=== PATIENT | male | born 1970 | race Caucasian/White ===

== ENCOUNTER 2019-10-10 08:00 | Outpatient (RCR) | payer BC, SELFPAY ==
--- NOTE | 2019-09-09 12:02 | HP.PTEVAL ---
Patient's Visit Information TETO AVALOS is a 49 year old M referred to Physical Therapy by Dr. Ernie Carr MD with a diagnosis of LUMBAGO WITH SCIATICA LEFT SIDE. Date of Evaluation: 09/09/19 Physical Therapist: Diaz Patel, PT, Cert MDT, OCS - Visit Plan Frequency: 2x /Week Duration: 4 Weeks Plan: PT INTERVENTIONS YOANNA EX'S,PROGRESS TO DLS,POSTURAL EX'S,MODALTIES - Subjective This 49 y/o male presents to physical therapy with lumbar pain with radicular symptoms. Patient has had pain 1 1/2 ago noticed lateral hip pain got better. August 21 pain worse in right leg with inability to walk. Seen DR Recommended PT and wants MRI thinkls disc involvement .Located left LS lateral leg and tibia anterior with parathesia/tingling with weakness of ankle causing foot drop. Patient is not working to due pain.Aggrevating factors lifting,bending walking and standing occasional sitting. Coughing/sneezing -. Bowel/bladder -. Pateint symptoms affects sleeping. Pain meds -muscle relaxer/predisone. Alleviating factors Advil.Patient condition affects QOL and RTW. 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 SOCIAL: single - Pain Left Back Pain Intensity (Out of 10): 4 Pain Intensity Range: 10 Left Lower Extremity Pain Intensity (Out of 10): 1 Pain Intensity Range: 10 Comment: parathesia - Objective POSTURE: mild foward posture. GAIT: reciprocal pattern foot slap left side. NEURO: c/o parathesia/tingling left leg below knee,mytome weakness L4,reflexes L3-4,L4-5,L5-S1 1/3. MMT: RIGHT LEG 4/5,left quads/hams 4/5,hip flexion 4/5,ankle dorsiflexion 3+/5. FLEXABLITY: hams mild tight - Special Tests L/S Slump test left side: Positive L/S Slump test right side: Negative L/S Left Straight Leg Raise: Negative L/S Right Straight Leg Raise: Negative Lumbar Standing: Flexion - Mechanical Response: No effect Lumbar Standing: Flexion - Symptoms During Testing: No effect Lumbar Standing: Flexion - Symptoms After Testing: No effect Lumbar Standing: Extension - Mechanical Response: No effect Lumbar Standing: Extension - Symptoms During Testing: No effect Lumbar Standing: Extension - Symptoms After Testing: No worse Lumbar Standing: Right Side Glides - Mechanical Response: No effect Lumbar Standing: Right Side [place] - Symptoms During Testing: No effect Lumbar Standing: Right Side [place] - Symptoms After Testing: No effect Lumbar Standing: Left Side [place] - Mechanical Response: No effect Lumbar Standing: Left Side [place] - Symptoms During Testing: Increases Lumbar Standing: Left Side [place] - Symptoms After Testing: No worse Lumbar Lying: Flexion - Mechanical Response: No effect Lumbar Lying: Flexion - Symptoms During Testing: Decreases Lumbar Lying: Flexion - Symptoms After Testing: No better Lumbar Lying: Extension - Mechanical Response: No effect Lumbar Lying: Extension - Symptoms During Testing: Abolishes Lumbar Lying: Extension - Symptoms After Testing: No worse Comments:: back - Goals Goal 1:: Patient to be I with HEP(STG) Goal Time Frame: 2 Weeks Goal 2:: Patient to improve posture for ADLS/body mechanics Goal Time Frame: 4-6 Weeks Goal 3:: Patient to improve leg and back pain by 50% or > to improve function. Goal Time Frame: 4-6 Weeks Goal 4:: Patient to impove lumbar ROM for function of recovery Goal Time Frame: 4-6 Weeks Goal 5:: Patient increase anterior tibials by 4-/5 to improve gait. Goal Time Frame: 4-6 Weeks Goal 6:: Patient to improve back owestry score by 5 points or > to improve function /QOL Goal Time Frame: 4-6 Weeks - Rehabilitation Potential Physical Therapy Diagnosis: This patient has lumbar pain with radicular symptoms with symptoms in distal leg with parathesia and tingling along with mytome weakness ankle dorsiflexion affecting gait ,decrease lumbar ROM thus will benifit from skilled PT and may need further diagnostics. Rehabilitation Potential: Good - Anticipated Interventions Patient/Client Instruction: Educate patient on: Condition, Plan of Care For the Purpose of:: To decrease pain, To increase ROM, To improve muscle performance and motor function, To improve performance and independence with ADL's, To improve ability of physical actions for home/community/work/leisure, To improve health of tissue, To decrease soft tissue restriction, To increase flexibility/ROM, To reduce risk of recurrence, To improve ability to perform tasks related to life management Therapeutic Exercise to Include: Strength training, Postural training, Flexibilty training, Dynamic Lumbar Stabilization, Yoanna Exercises For the Purpose of:: To decrease pain, To increase ROM, To improve muscle performance and motor function, To improve ability to perform ADL's, To increase tolerance to activity/condition/position, To improve performance and independence with ADL's, To improve ability of physical actions for home/community/work/leisure, To improve health of tissue, To decrease soft tissue restriction, To increase flexibility/ROM, To improve ability to perform tasks related to life management TENS: Yes IF ES: Yes Cryotherapy (ice pack, ice massage): Yes Thermo therapy (hot pack): Yes Ultrasound (thermal/non thermal): Yes For the Purpose of:: To decrease pain, To decrease swelling/inflammation, To improve nutrient delivery to tissue, To increase oxygenation perfusion, To improve health of tissue, To decrease soft tissue restriction Thank you for the opportunity to evaluate your patient. For Medicare and Medicare HMO plans, please review the plan of care and approve it. It will need to be FAXED BACK to us at [phone] for Medicare purposes. For Medicare only, by signing this I certify the plan of care. Please let me know if there are questions or concerns regarding this plan of care. Physician Signature: Date:
--- NOTE | 2019-09-26 13:59 | HP.PTREVAL ---
Dr. Ernie Carr MD, It has been my pleasure to treat TETO AVALOS over the last 4 visits for LUMBAGO WITH SCIATICA LEFT SIDE. Please see the progress note below for an update on the physical therapy plan of care! Subjective: Better than it was. Still gets it in certain positions like squatting. Painfree at rest but L leg numbness persists. Doing exercise 1x/day at home. Objective/Function: L DF strength 35# vs 65# R in supine. Extremely stiff ext L/S and painful centrally. Slightly improved AROM after ext in stand, lying adn ext mobs, but no change to DF strength. Weakness apparent in L Df,Pt sitting with flat lordotic posture adn very poor ext with cental pain, slow flexion and stiff. Recommend patient contact doctor regarding MRI as weakness in L DF persists. Appropriate to cotninue therapy also despite slow progress. Plan Plan: 2x/weeek x 2 weeks to cotninue PT, Pt to contact doctor regarding getting MRI whcih would be apporpriate based on L DF weakness. Being off work still appropriate based on Df weakness adn slow pain improvement. PT to consist of ext ex adn core strength. Goals Goal 1:: Patient to be I with HEP(STG) Goal Time Frame: 2 Weeks Goal 2:: Patient to improve posture for ADLS/body mechanics Goal Time Frame: 4-6 Weeks Goal 3:: Patient to improve leg and back pain by 50% or > to improve function. Goal Time Frame: 4-6 Weeks Goal 4:: Patient to impove lumbar ROM for function of recovery Goal Time Frame: 4-6 Weeks Goal 5:: Patient increase anterior tibials by 4-/5 to improve gait. Goal Time Frame: 4-6 Weeks Goal 6:: Patient to improve back owestry score by 5 points or > to improve function /QOL Goal Time Frame: 4-6 Weeks Anticipated Interventions Patient/Client Instruction: Educate patient on: Condition, Plan of Care For the Purpose of:: To decrease pain, To increase ROM, To improve muscle performance and motor function, To improve performance and independence with ADL's, To improve ability of physical actions for home/community/work/leisure, To improve health of tissue, To decrease soft tissue restriction, To increase flexibility/ROM, To reduce risk of recurrence, To improve ability to perform tasks related to life management Therapeutic Exercise to Include: Strength training, Postural training, Flexibilty training, Dynamic Lumbar Stabilization, Miladys Exercises For the Purpose of:: To decrease pain, To increase ROM, To improve muscle performance and motor function, To improve ability to perform ADL's, To increase tolerance to activity/condition/position, To improve performance and independence with ADL's, To improve ability of physical actions for home/community/work/leisure, To improve health of tissue, To decrease soft tissue restriction, To increase flexibility/ROM, To improve ability to perform tasks related to life management TENS: Yes IF ES: Yes Cryotherapy (ice pack, ice massage): Yes Thermo therapy (hot pack): Yes Ultrasound (thermal/non thermal): Yes For the Purpose of:: To decrease pain, To decrease swelling/inflammation, To improve nutrient delivery to tissue, To increase oxygenation perfusion, To improve health of tissue, To decrease soft tissue restriction Please do not hesitate to contact me at [phone] by phone or if you have questions or concerns regarding this new plan of care! Sincerely, Noah Ho, DPT, OCS, CSCS
--- NOTE | 2020-02-18 13:22 | HP.PT.NRP ---
TETO AVALOS was seen in my office for initial evaluation on 09/09/19. The following Plan of Care was established for this patient: Initial Frequency: 2x /Week Initial Duration: 4 Weeks Patient/Client Instruction: Educate patient on: Condition, Plan of Care For the Purpose of:: To decrease pain, To increase ROM, To improve muscle performance and motor function, To improve performance and independence with ADL's, To improve ability of physical actions for home/community/work/leisure, To improve health of tissue, To decrease soft tissue restriction, To increase flexibility/ROM, To reduce risk of recurrence, To improve ability to perform tasks related to life management Therapeutic Exercise to Include: Strength training, Postural training, Flexibilty training, Dynamic Lumbar Stabilization, Richard Exercises For the Purpose of:: To decrease pain, To increase ROM, To improve muscle performance and motor function, To improve ability to perform ADL's, To increase tolerance to activity/condition/position, To improve performance and independence with ADL's, To improve ability of physical actions for home/community/work/leisure, To improve health of tissue, To decrease soft tissue restriction, To increase flexibility/ROM, To improve ability to perform tasks related to life management TENS: Yes IF ES: Yes Cryotherapy (ice pack, ice massage): Yes Thermo therapy (hot pack): Yes Ultrasound (thermal/non thermal): Yes For the Purpose of:: To decrease pain, To decrease swelling/inflammation, To improve nutrient delivery to tissue, To increase oxygenation perfusion, To improve health of tissue, To decrease soft tissue restriction This patient was last seen in our office . Pertinent comments regarding their Physical therapy will appear below: Patient seen for PT for back pain. PT interventions with richard ex's and DLS . Patient did have weakness ankle . Patient eas to f/u with back specialist At this point I will be discontinuing this patient from physical therapy. I would be happy to see this patient again in the future if found appropriate by the physician. Thank you! Diaz Patel, PT, Cert MDT, OCS
== END 2019-10-10 19:00 | disposition home or self-care (01) ==
LOC: PT 08:00
PROVIDERS: PCP Family Medicine; Referring Provider Family Medicine; Visit Provider Family Medicine
DX: M54.42 Lumbago with sciatica, left side (principal)
CPT/HCPCS: 97014; 97035; 97110; 97161; 97530; G0283

== ENCOUNTER → 2019-10-13 15:22 | Outpatient (CLI) | payer BC, SELFPAY ==
--- NOTE | 2019-10-13 15:25 | MRI_ITS ---
STUDY: MRI LUMBAR SPINE WITHOUT CONTRAST REASON FOR EXAM: Male, 49 years old. back and left leg pain/ numbness since 08/2019 TECHNIQUE: Standardized fat and water weighted pulse sequences were obtained in the sagittal and axial planes. COMPARISON: None FINDINGS: T12-L1: Normal endplates. Disc dehydration. Mild, noncompressive spondylotic bar. Normal bilateral facet joints. Normal central canal and bilateral lateral recesses. Normal bilateral intervertebral neural foramina. Normal lumbar lordosis. There is no substantial scoliosis. Normal conus medullaris that terminates at the L1-L2 level. L1-2: Normal endplates. Normal disc height, hydration and morphology. Normal bilateral facet joints. Normal central canal and bilateral lateral recesses. Normal bilateral intervertebral neural foramina. L2-3: Normal endplates. Normal disc height, hydration and morphology. Normal bilateral facet joints. Normal central canal and bilateral lateral recesses. Normal bilateral intervertebral neural foramina. L3-4: Normal endplates. Normal disc height, hydration and morphology. Normal bilateral facet joints. Normal central canal and bilateral lateral recesses. Normal bilateral intervertebral neural foramina. L4-5: Normal endplates. Disc dehydration and mild disc space narrowing. Annular disc bulge. Moderate left paracentral disc extrusion with 1.4 cm superior migration. There is effacement of the thecal sac and left lateral recess. There is displacement of the traversing left L5 nerve root. Moderate to severe canal stenosis due to the disc extrusion, facet and ligamentous hypertrophy. Mild facet hypertrophy. There is moderate bilateral foraminal stenosis due to small disc protrusions, spurring, and facet hypertrophy. There is marrow edema in the right pedicle and inferior articular facet. L5-S1: Fatty endplate changes. Marked disc space narrowing. Small left paracentral disc extrusion touches the traversing left S1 nerve root. Mild underlying spondylotic bar. Borderline canal stenosis due to spondylosis. Disc extrusion is contributory. Normal bilateral facet joints. Foraminal stenosis is mild on the right and moderate on the left due to spurring. Normal visualized sacral ala. Normal visualized paraspinous soft tissue structures. MRI/Spine Lumbar (Routine) IMPRESSION: 1. L4-L5 disc extrusion with superior migration, effacement of the thecal sac and left lateral recess, displacement of the left L5 nerve root. 2. L4-L5 canal stenosis due to the disc extrusion, facet and ligamentous hypertrophy. 3. Borderline canal stenosis at L5-S1. 4. Foraminal stenosis at L4-L5 and L5-S1. 5. Degenerative changes as noted above. Electronically Signed: Kathy Ramey MD at 22:41 EDT Tel , Service support ,
== END ==
PROVIDERS: PCP Family Medicine; Referring Provider Family Medicine; Visit Provider Family Medicine
DX: M54.42 Lumbago with sciatica, left side (principal)
CPT/HCPCS: 72148